=== PATIENT | male | born 1935 | race Caucasian/White ===

== ENCOUNTER 2016-07-17 14:19 | Day surgery (SDC) | payer MEDICARE, OTHER ==
[2016-07-17] VITALS (11 sets, daily range): BP systolic 113–144; BP diastolic 41–97; PULSE 76–93; RESP 12–19; O2SAT 96–98
[~2016-07-17] VITALS: Ht 185.4 cm; Wt 98.5 kg
--- NOTE | 2016-07-17 06:39 | PCM.HPANE ---
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) Medications Reported Medications Cephalexin (Keflex)Unknown Strength CapsuleUnknown Dose PO 07/17/16 Sulfamethoxazole/Trimeth 400-80 mg (Bactrim)Unknown Strength TabletUnknown Dose PO 07/17/16 Fluticasone Propionate (Fluticasone Propionate Nasal)16 Gm Williams.susp1 Williams NS BID #16 GM Ref 0 07/14/16 Tamsulosin (Flomax)0.4 Mg Capsule0.8 Mg PO DAILY Ref 0 07/14/16 Discontinued Reported Medications [keflex] No Conflict CheckUnknown Dose Q6H 07/14/16 [bactrim] No Conflict Check0.5 Tab DAILY 07/14/16 History History of ENT Problems?: No Hx of Heart Problems?: No Hx of Respiratory Problem?: Yes Respiratory History: Positive for:: Use of C-PAP Machine (sleep apnea noted- ? CPAP) Hx Neurologic Problems?: No Hx of GI Problems?: No Hx of Problems?: Yes Genitourinary History: Denies:: Kidney Stones Urinary Tract Infection Other Pertinent History: urinary retention current admission problem. Indwelling samaniego currently in place Male Hx: Positive for:: Prostate Problems Skin History: Denies:: History Skin Disorders? Pressure Ulcers Hx Musculoskeletal Problems?: Yes Musculoskeletal History: Positive for:: Joint Replacement (hip) Hx of Psycho/Social Problems?: No Hx Surgeries?: Yes (hip replacement) Hx Any Other Health Problems?: Yes Other History: Denies:: Cancer Thyroid Disease Hx Diabetes: No Stop/Bang Treated for Sleep Apnea?: Yes Do You Have a CPAP Machine?: Yes S-Snoring: Do You Snore Loudly: Yes T-Tired: feel tired, fatigued: No O-Obsered: Observed not breath: Yes P-Blood Pressure: treated: No B- Body Mass Index > 35 kg/m2: No A- Age over 50: Yes N- Neck Large Circumference: No G- Gender Male: Yes NICA Total Score: 4 NICA Risk Assessment: High Risk, =/>3 Yes Risk Assessment Category Category 1A: Patient has history of documented sleep apnea, and HAS NOT received any narcotic, sedative or anesthesia administration during this stay. Category 1B: Patient has history of documented sleep apnea, and HAS received any narcotic , sedative or anesthesia administration during this stay Category 2: Patient has SUSPECTED Obstructive Sleep Apnea, and HAS received any narcotic , sedative or anesthesia administration during this stay. Category 3: Patient has SUSPECTED Obstructive Sleep Apnea and HAS NOT received narcotic, sedative or anesthesia administration during this stay. Category 4: Outpatient in Procedural Areas with known sleep apnea or who screen positive for High Risk via the STOP/BANG questionnaire. Exam Exam General Appearance: Alert, Oriented X3, Cooperative, No Acute Distress HEENT/AIRWAY: MP 2 (Large tongue) Lungs: Clear to Auscultation, Normal Air Movement Heart: Exam Unremarkable, Normal S1, Normal S2, No Murmurs/Rubs/Gallops Plan Impression Patient chart reviewed, patient interviewed and anesthestic plan with risks, benefits, and alternatives discussed, and informed consent obtained. ASA Physical Status: ASA2 Mod Systemic Disease Anesthetic Plan: GA Bene/Risks/Altern/Consents: Yes HP Complete Prior to Induction: Yes Js Osuna MD Jul 17, 2016 06:39 Delmar Buck DO Jul 17, 2016 18:04
[~2016-07-17 14:19] MED LIST: FLUT16SP NS; Lactated Ringer's 1,000 ML IV ONE; Levofloxacin 500 mg/100 mL D5W IV ONE; TAMS0.4C98 PO; bactrim; keflex
[2016-07-17] MEDS ORDERED: EPHEDrine/NS 5 mg/mL 5 mL Syringe ONE (14:20)
[2016-07-17] MEDS ORDERED: Dexamethasone 4 mg/mL Inj ONE (14:20)
[2016-07-17] MEDS ORDERED: fentaNYL-PF 50 mCg/mL 2 mL Inj ONE (14:20)
[2016-07-17] MEDS ORDERED: Ondansetron 2 mg/mL 2 mL Inj ONE (14:20)
[2016-07-17] MEDS ORDERED: Propofol 10,000 mCg/mL 20 mL Inj ONE (14:20)
[2016-07-17] MEDS ORDERED: CEPH-511 PO (14:25)
[2016-07-17] MEDS ORDERED: SULF-239 PO (14:25)
[2016-07-17] MEDS ORDERED: levoFLOXacin 500 mg/100 mL D5W Premix IV ONE (15:08)
[2016-07-17] MEDS ORDERED: Lactated Ringer's 1,000 ML IV ONE (17:34)
[2016-07-17] MEDS ORDERED: Lactated Ringer's 500 ML IV PRN (18:04)
[2016-07-17] MEDS ORDERED: Lactated Ringer's 1,000 ML IV SCH (18:04)
[2016-07-17] MEDS ORDERED: Atropine 0.4 mg/mL Inj IVPUSH PRN (18:05)
[2016-07-17] MEDS ORDERED: Ondansetron 2 mg/mL 2 mL Inj IVPUSH PRN (18:05)
[2016-07-17] MEDS ORDERED: EPHEDrine Sulfate 50 mg/mL Inj IVPUSH PRN (18:05)
[2016-07-17] MEDS ORDERED: fentaNYL-PF 50 mCg/mL 2 mL Inj IVPUSH PRN (18:05)
[2016-07-17] MEDS ORDERED: HYDROmorphone 1 mg/mL Inj IVPUSH PRN (18:05)
[2016-07-17] MEDS ORDERED: Phenylephrine 10,000 mCg/mL Inj IVPUSH PRN (18:05)
[2016-07-17] MEDS ORDERED: Dexamethasone 4 mg/mL Inj IVPUSH PRN (18:05)
[2016-07-17] MEDS ORDERED: Labetalol 5 mg/mL 4 mL Inj IV PRN (18:05)
[2016-07-17] MEDS ORDERED: MetoCLOpramide 5 mg/mL 2 mL Inj IVPUSH PRN (18:05)
[2016-07-17] MEDS ORDERED: HYDROcodone-APAP 5-325 mg Tablet PO PRN (18:20)
--- NOTE | 2016-07-17 18:30 | PCM.ANEP1 ---
Post Anesthesia Phase 1 PACU Phase 1 Assessment Date of Service: Jul 17, 2016 Vital Signs Vital Signs Date Time Temp Pulse Resp B/P Pulse Ox O2 Delivery O2 Flow Rate FiO2 07/17/16 18:25 91 13 136/61 96 Room Air 07/17/16 18:20 92 12 130/97 98 Simple Mask 8 07/17/16 18:15 36.4 88 19 144/73 98 Simple Mask 8 07/17/16 16:00 36.7 93 16 136/70 98 Room Air Level of Alertness: Drowsy, not talking AGUIRRE's with Equal Strength: Yes Pain: No Airway Device: lma Oxygen Delivery: Simple Mask (6L) Lungs: Clear to Auscultation, Normal Air Movement Dermatome Level: Full Sensation Dlemar Buck DO Jul 17, 2016 18:30
--- NOTE | 2016-07-18 01:22 | OP ---
[address] [address] OPERATIVE REPORT PATIENT: BRINA BYERS : 1935 MR#: [id number] ADMIT: 07/17/2016 JOB ID: [id number] DATE OF SURGERY: 07/17/2016 PREOPERATIVE DIAGNOSIS(ES): Urinary retention. POSTOPERATIVE DIAGNOSIS(ES): Urinary retention. PROCEDURE PERFORMED: 1. Cystoscopy. 2. Transurethral resection of prostate. SURGEON: Harper Crews MD FINDINGS: 1. Large prostate with coapted lobes. 2. Hyperemic bladder. 3. Bilateral orthotopic ureteral orifices. ANESTHESIA: General. ESTIMATED BLOOD LOSS: 25 mL. DRAINS: An 18-Kazakh coude catheter. COMPLICATIONS: None. CONDITION: Stable. INDICATION FOR PROCEDURE: The patient is a 80-year-old gentleman with failed multiple voiding trials and medical management. He wished to undergo transurethral resection of prostate. DESCRIPTION OF PROCEDURE: After informed consent was obtained,the patient was taken to the operating room. A time-out was performed, identifying correct patient, surgical site, and procedure. General anesthesia was smoothly induced. He was given intravenous antibiotics prior to the start of the procedure. He was placed in lithotomy position and all pressure points were identified and appropriately padded. His genitals were then prepped and draped in the usual sterile fashion. A 26-Kazakh resectoscope was placed in the patient's urethra and advanced to the bladder under direct vision. The bladder was systematically surveyed. The findings were as aforementioned. A 24-Kazakh loop was used to resect the prostate in piecemeal fashion, working from the right lobe and then the left lobe as well as the bladder neck where there was a lobe there as well. Ellik was used multiple times throughout the procedure. The ureteral orifices were verified multiple times as well at the end of the procedure and left as undisturbed. At the end of the procedure, all the prostate chips were verified as removed, and an 18-Kazakh coude catheter was placed in the patient's bladder. There was excellent hemostasis at this point. The patient was then reversed from general anesthesia and taken to the PACU in stable condition. JEFF
--- NOTE | 2016-07-18 07:18 | PCM.ANEP2 ---
Post Anesthesia Evaluation ASA/CMS Post Anesthesia VS in Patient's Normal Range?: Yes Resp Stable; Airway Patent?: Yes CV Function & Hydration Stable: Yes Mental Status Recovered?: Yes Pain control Satisfactory?: Yes N/V Control Satisfactory?: Yes Js Osuna MD Jul 18, 2016 07:18
--- NOTE | 2016-07-19 12:28 | PATH ---
SURGICAL PATHOLOGY Attending Physician:Harper Crews, CASE STATUS: Signed Out PATIENT NAME: BRINA BYERS PID: [id number] : 1935 DATE COLLECTED:07/17/2016 22:57 SPECIMEN: Prostate, Chips CLINICAL HISTORY: URINARY RETENTION 1). 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 ICD10 CODE N40.1 GROSS DESCRIPTION: The specimen is received in formalin, labeled with the patient's name, sublabeled as prostate tissue, and consists of multiple fragments of pierce-pink rubbery prostatic tissue (24.4 g, 8.2 x 6.5 x 2.3 cm in aggregate). Section code: (A-I) prostatic tissue, outbound sales representative. 07/18/16 JM MICRO DESCRIPTION: See diagnosis. ICD-9 CODES: CPT CODES: 1: 47852 Electronically Signed Out Arjun Elkins MD [facility] [address], [place] [address] Technical component performed at [facility], [address] [place] [address] Ave[address], [place], [address]
== END 2016-07-17 23:59 | disposition home or self-care (01) ==
LOC: SAS 14:19
PROVIDERS: ATTEND Urology
DX: R33.9 Retention of urine, unspecified (principal); N32.89 Other specified disorders of bladder; N28.89 Other specified disorders of kidney and ureter
CPT/HCPCS: 52601; 88305; J1100; J2175; J2250; J2405; J3010; J7120